=== PATIENT | female | born 1975 | race Caucasian/White ===

== ENCOUNTER 2018-02-23 11:39 | Emergency (ER) | payer OTHER ==
[2018-02-23] MEDS: NORCO, ANEXSIA 5/325MG TABLET (HYDROcodone/ACETAMINOPHEN) PO (12:00)
== END 2018-02-23 12:53 | disposition home or self-care (01) ==
LOC: M ED 11:39
DX: S40.021A Contusion of right upper arm, initial encounter (principal); W00.9XXA Unspecified fall due to ice and snow, initial encounter; Y92.009 Unspecified place in unspecified non-institutional (private) residence as the place of occurrence of the external cause; Z98.84 Bariatric surgery status
CPT/HCPCS: 73060

== ENCOUNTER → 2018-03-09 | Outpatient (CLI) | payer OTHER ==
[~2018-03-09] MED LIST: CALC500T49 PO; MULT1TAB10 PO; NORCOTAB PO; VITA20008 PO; VITA500T53 PO
[2018-03-09 09:42] LABS: BASO # 0.1 10^3/uL (0.0-0.2); BASO % 0.6 % (0.0-1.0); EOS # 0.1 10^3/uL (0.0-0.50); EOS % 1.3 % (0.0-3.0); HEMATOCRIT 40.5 % (36.0-47.0); HEMOGLOBIN 13.6 g/dl (12.0-15.5); LYMPH # 2.1 10^3/uL (1.5-4.5); LYMPH % 24.7 % (24.0-44.0); MEAN CORPUSCULAR HEMOGLOBIN 30.6 pg (27.0-33.0); MEAN CORPUSCULAR HGB CONC 33.6 g/dl (32.0-36.5); MEAN CORPUSCULAR VOLUME 91.2 fl (80.0-96.0); MONO # 0.7 10^3/uL (0.0-0.8); MONO % 8.6 % (0.0-5.0); NEUTROPHILS # 5.5 10^3/uL (1.8-7.7); NEUTROPHILS % 64.5 % (36.0-66.0); PLATELET COUNT, AUTOMATED 329 10^3/uL (150-450); RED BLOOD COUNT 4.44 10^6/uL (4.00-5.40); WHITE BLOOD COUNT 8.6 10^3/uL (4.0-10.0)
[2018-03-09 10:10] LABS: ALBUMIN 3.5 GM/DL (3.2-5.2); ALT/SGPT 20 U/L (12-78); BILIRUBIN,TOTAL 0.8 MG/DL (0.2-1.0); BLOOD UREA NITROGEN 15 MG/DL (7-18); CALCIUM LEVEL 8.6 MG/DL (8.5-10.1); CARBON DIOXIDE LEVEL 29 MEQ/L (21-32); CHLORIDE LEVEL 108 MEQ/L (98-107); CHOLESTEROL LEVEL 199 MG/DL (<200); CHOLESTEROL RISK RATIO 4.145 (<5); CREATININE FOR GFR 0.59 MG/DL (0.55-1.30); GLOMERULAR FILTRATION RATE > 60.0 (>58); GLUCOSE, FASTING 91 MG/DL (70-100); HDL CHOLESTEROL 48 MG/DL (>40); LDL CHOLESTEROL 127 MG/DL (<100); NON-HDL-C 151 MG/DL; POTASSIUM SERUM 3.9 MEQ/L (3.5-5.1); SODIUM LEVEL 143 MEQ/L (136-145); TOTAL PROTEIN 7.1 GM/DL (6.4-8.2); TRIGLYCERIDES LEVEL 120 MG/DL (<150)
[2018-03-09 10:47] LABS: TOTAL 25(OH) VITAMIN D 50.4 NG/ML (30.0-100.0)
[2018-03-09 11:16] LABS: HEMOGLOBIN A1c 5.5 %
== END ==
LOC: M LAB 09:15
PROVIDERS: ATTEND Nurse Practitioner Family
DX: E11.9 Type 2 diabetes mellitus without complications (principal); E78.5 Hyperlipidemia, unspecified; E55.9 Vitamin D deficiency, unspecified; I10 Essential (primary) hypertension

== ENCOUNTER → 2018-11-02 | Outpatient (CLI) | payer OTHER ==
[~2018-11-02] MED LIST changes: +HYDR-3715 PO; -NORCOTAB PO; +VITA500T17 PO; -VITA500T53 PO
[2018-11-02 12:56] LABS: BASO # 0.1 10^3/uL (0.0-0.2); BASO % 0.6 % (0.0-1.0); EOS % 0.5 % (0.0-3.0); HEMATOCRIT 44.9 % (36.0-47.0); HEMOGLOBIN 15.2 g/dl (12.0-15.5); LYMPH # 1.7 10^3/uL (1.5-4.5); LYMPH % 20.5 % (24.0-44.0); MEAN CORPUSCULAR HEMOGLOBIN 31.3 pg (27.0-33.0); MEAN CORPUSCULAR HGB CONC 33.9 g/dl (32.0-36.5); MEAN CORPUSCULAR VOLUME 92.4 fl (80.0-96.0); MONO # 0.6 10^3/uL (0.0-0.8); MONO % 7.2 % (0.0-5.0); NEUTROPHILS # 5.8 10^3/uL (1.8-7.7); PLATELET COUNT, AUTOMATED 259 10^3/uL (150-450); RED BLOOD COUNT 4.86 10^6/uL (4.00-5.40); WHITE BLOOD COUNT 8.2 10^3/uL (4.0-10.0)
[2018-11-02 14:15] LABS: ALBUMIN 3.3 GM/DL (3.2-5.2); ALT/SGPT 23 U/L (12-78); BILIRUBIN,TOTAL 0.5 MG/DL (0.2-1.0); BLOOD UREA NITROGEN 14 MG/DL (7-18); CALCIUM LEVEL 8.9 MG/DL (8.5-10.1); CARBON DIOXIDE LEVEL 26 MEQ/L (21-32); CHLORIDE LEVEL 107 MEQ/L (98-107); CREATININE FOR GFR 0.53 MG/DL (0.55-1.30); FREE T4 1.09 NG/DL (0.76-1.46); GLOMERULAR FILTRATION RATE > 60.0 (>58); GLUCOSE, FASTING 96 MG/DL (70-100); MAGNESIUM LEVEL 1.9 MG/DL (1.8-2.4); POTASSIUM SERUM 4.1 MEQ/L (3.5-5.1); SODIUM LEVEL 141 MEQ/L (136-145); TOTAL PROTEIN 6.6 GM/DL (6.4-8.2)
== END ==
LOC: M WUC 10:15
PROVIDERS: ATTEND Physician Assistant
DX: R42 Dizziness and giddiness (principal)

== ENCOUNTER → 2018-11-22 | Outpatient (CLI) | payer OTHER ==
[2018-11-22 13:52] LABS: FOLATE > 24.0 NG/ML (>5.4); VITAMIN B12 LEVEL 1681 PG/ML (247-911)
[2018-11-22 13:58] LABS: TOTAL 25(OH) VITAMIN D 43.4 NG/ML (30.0-100.0)
[2018-11-23 16:15] LABS: FERRITIN 67 NG/ML (8-252); IRON (FE) 91 UG/DL (50-170); PERCENT SATURATION 30.2 % (13.2-45.0); TOTAL IRON BINDING CAPACITY 301 UG/DL (250-450)
[2018-11-29 10:07] LABS: NICOTINIC ACID <5.0 ng/mL (0.0-5.0); VITAMIN A, RETINOL LEVEL 47.8 ug/dL (20.1-62.0); VITAMIN B1 LEVEL WHOLE BLOOD 169.6 nmol/L (66.5-200.0); VITAMIN B2 (RIBOFLAVIN) 229 ug/L (137-370); VITAMIN B6,PYRIDOXAL PHOSPHATE 40.7 ug/L (2.0-32.8); VITAMIN B7 (BIOTIN) 1.05 ng/mL (0.05-0.83); VITAMIN C, ASCORBIC ACID 1.6 mg/dL (0.2-2.0); VITAMIN E(ALPHA TOCOPHEROL) 14.8 mg/L (7.0-25.1); VITAMIN E(GAMMA TOCOPHEROL) 0.7 mg/L (0.5-5.5); VITAMIN K1 1.52 ng/mL (0.13-1.88)
== END ==
LOC: M LAB 11:54
PROVIDERS: ATTEND Obstetrics & Gynecology
DX: Z98.84 Bariatric surgery status (principal)

== ENCOUNTER → 2020-03-31 | Outpatient (CLI) | payer OTHER ==
--- NOTE | 2020-03-31 08:55 | REPMRS ---
Patient History The patient states she has not had a clinical breast exam in over a year. Patient is nulliparous. No known family history of cancer. 3D TOMOSYNTHESIS WAS PERFORMED. [facility] lifetime risk for breast cancer is 13.0%. Volpara breast density b. Digital Woman Screen Mammo: March 31, 2020 - Exam #: [id number] Bilateral CC and MLO view(s) were taken. Technologist: Miya Daniels, Technologist No prior studies available for comparison. FINDINGS: There are scattered fibroglandular densities. There is a mild amount of residual fibroglandular tissue which is fairly symmetric. There is no dominant mass, architectural distortion, or clustered microcalcification suggestive of malignancy. Assessment: BI-RADS/ACR category 1 mammogram. Negative Mammogram. Recommendation Routine screening mammogram in 1 year (for women over age 40). This mammogram was interpreted with the aid of an FDA-approved computer-aided dectection system. Electronically Signed By: Devin Taveras MD 03/31/20 0832
== END ==
LOC: M WHC 07:57
PROVIDERS: ATTEND Student in an Organized Health Care Education/Training Program
DX: Z12.31 Encounter for screening mammogram for malignant neoplasm of breast (principal)

== ENCOUNTER → 2020-05-13 | Outpatient (REF) | payer OTHER | LOC: M SFHCPLAZ 10:06 | PROVIDERS: ATTEND Student in an Organized Health Care Education/Training Program | DX: Z12.4 Encounter for screening for malignant neoplasm of cervix (principal) | CPT/HCPCS: 87624; G0123 ==

== ENCOUNTER → 2020-07-18 | Outpatient (REF) | payer OTHER ==
[2020-07-18 13:07] LABS: BLOOD UREA NITROGEN 14 MG/DL (7-18); CALCIUM LEVEL 9.1 MG/DL (8.5-10.1); CARBON DIOXIDE LEVEL 27 MEQ/L (21-32); CHLORIDE LEVEL 111 MEQ/L (98-107); FERRITIN 10 NG/ML (8-252); GLOMERULAR FILTRATION RATE > 60.0 (>58); GLUCOSE, FASTING 84 MG/DL (70-100); IRON (FE) 94 UG/DL (50-170); MAGNESIUM LEVEL 1.9 MG/DL (1.8-2.4); POTASSIUM SERUM 4.1 MEQ/L (3.5-5.1); SODIUM LEVEL 142 MEQ/L (136-145)
[2020-07-18 13:12] LABS: PTH INTACT 70.9 PG/ML (18.5-88.0); TOTAL 25(OH) VITAMIN D 46.8 NG/ML (30.0-100.0); VITAMIN B12 LEVEL 1125 PG/ML (247-911)
== END ==
LOC: M SFHCPLAZ 09:54
PROVIDERS: ATTEND Family Medicine
DX: Z98.84 Bariatric surgery status (principal)

== ENCOUNTER → 2020-08-14 | Outpatient (REF) | payer OTHER | LOC: M PLALAB 08:08 | PROVIDERS: ATTEND Student in an Organized Health Care Education/Training Program | DX: R74.8 Abnormal levels of other serum enzymes (principal) ==

== ENCOUNTER → 2022-12-22 | Outpatient (CLI) | payer OTHER | LOC: M WHC 07:27 | PROVIDERS: ATTEND Student in an Organized Health Care Education/Training Program | DX: Z12.31 Encounter for screening mammogram for malignant neoplasm of breast (principal) ==

== ENCOUNTER → 2022-12-22 | Outpatient (CLI) | payer OTHER ==
[2022-12-22 11:38] LABS: HEMOGLOBIN A1c 5.9 % (4.0-6.0)
[2022-12-22 11:43] LABS: BLOOD UREA NITROGEN 19 MG/DL (9-23); CALCIUM LEVEL 8.7 MG/DL (8.5-10.1); CARBON DIOXIDE LEVEL 28 MMOL/L (20-31); CHLORIDE LEVEL 109 MMOL/L (98-107); CHOLESTEROL LEVEL 221 MG/DL (<200); CHOLESTEROL RISK RATIO 4.01 (<5); CREATININE FOR GFR 0.64 MG/DL (0.55-1.30); GLOMERULAR FILTRATION RATE > 60.0 (>58); GLUCOSE, FASTING 90 MG/DL (60-100); LDL CHOLESTEROL 139.8 MG/DL (<100); PHOSPHORUS LEVEL 3.8 MG/DL (2.5-4.9); POTASSIUM SERUM 4.2 MMOL/L (3.5-5.1); SODIUM LEVEL 142 MMOL/L (136-145); TRIGLYCERIDES LEVEL 131 MG/DL (<150)
== END ==
LOC: M PLALAB 08:21
PROVIDERS: ATTEND Student in an Organized Health Care Education/Training Program
DX: Z13.1 Encounter for screening for diabetes mellitus (principal); Z13.220 Encounter for screening for lipoid disorders; Z98.84 Bariatric surgery status; Z13.21 Encounter for screening for nutritional disorder

== ENCOUNTER 2023-01-16 04:32 | Emergency (ER) | payer OTHER ==
[~2023-01-16] VITALS: Ht 165.1 cm; Wt 85.5 kg
[2023-01-16 05:29] LABS: BASO # 0.1 10^3/uL (0.0-0.2); BASO % 0.3 % (0.0-1.0); HEMATOCRIT 34.3 % (36.0-47.0); HEMOGLOBIN 10.6 g/dl (12.0-15.5); LYMPH # 1.3 10^3/uL (1.5-5.0); LYMPH % 9.2 % (24.0-44.0); MEAN CORPUSCULAR HEMOGLOBIN 23.1 pg (27.0-33.0); MEAN CORPUSCULAR HGB CONC 30.9 g/dl (32.0-36.5); MEAN CORPUSCULAR VOLUME 74.7 fl (80.0-96.0); MONO # 0.8 10^3/uL (0.0-0.8); MONO % 5.8 % (2.0-8.0); NEUTROPHILS # 12.2 10^3/uL (1.5-8.5); NEUTROPHILS % 84.4 % (36.0-66.0); PLATELET COUNT, AUTOMATED 374 10^3/uL (150-450); RED BLOOD COUNT 4.59 10^6/uL (4.00-5.40); WHITE BLOOD COUNT 14.4 10^3/uL (4.0-10.0)
[2023-01-16 05:54] LABS: ALBUMIN 3.6 G/DL (3.2-5.2); BILIRUBIN,DIRECT 0.3 MG/DL (<0.4); BILIRUBIN,TOTAL 0.7 MG/DL (0.3-1.2); TOTAL PROTEIN 7.6 G/DL (5.7-8.2)
[2023-01-16] MEDS ORDERED: MORPHINE 4 MG/ML 1ML VIAL IV ONE (06:35)
[2023-01-16] MEDS ORDERED: NS 1,000 ML IV ONE (06:35)
[2023-01-16] MEDS ORDERED: ONDANSETRON 4MG 2ML VIAL IV ONE (06:35)
[2023-01-16] MEDS ORDERED: MORPHINE 2 MG/ML 1ML VIAL IV ONE (07:10)
[2023-01-16 07:45] LABS: HCG, SERUM QUALITATIVE NEGATIVE (NEGATIVE)
[2023-01-16] MEDS ORDERED: PERC5TAB12 PO (09:35)
[2023-01-16] MEDS ORDERED: FLOM0.4C39 PO (09:35)
[2023-01-16] MEDS ORDERED: ONDA4TAB6 PO (09:35)
[2023-01-16] MEDS ORDERED: MIRA3350 PO (09:35)
[2023-01-16] MEDS ORDERED: cefTRIAXone SOD 1 GM in D5W MINI-BAG PLUS 50 ML IV ONE (09:40)
[2023-01-16] MEDS ORDERED: CEFD300C42 PO (09:42)
[2023-01-16 10:14] VITALS: BP 139/72; TEMP 99.4; O2SAT 99
== END 2023-01-16 10:23 | disposition home or self-care (01) ==
LOC: M ED 04:32
DX: N20.1 Calculus of ureter (principal); N13.30 Unspecified hydronephrosis; Z98.84 Bariatric surgery status; Z79.83 Long term (current) use of bisphosphonates; Z79.810 Long term (current) use of selective estrogen receptor modulators (SERMs); Z79.899 Other long term (current) drug therapy; Z88.5 Allergy status to narcotic agent
CPT/HCPCS: 74176; 80047; 80076; 81001; 83605; 83690; 84703; 85025; 87086; 93005; 96361; 96365; 96375; 96376; 99284; J0696; J2405

== ENCOUNTER → 2023-02-01 | Outpatient (REF) | payer OTHER ==
[~2023-02-01] MED LIST changes: +CEFD300C42 PO; +FLOM0.4C39 PO; +MIRA3350 PO; +ONDA4TAB6 PO; +PERC5TAB12 PO
== END ==
LOC: M SMT 13:08
PROVIDERS: ATTEND Nurse Practitioner Family
DX: N20.0 Calculus of kidney (principal)

== ENCOUNTER 2023-05-03 10:51 | Day surgery (SDC) | payer OTHER ==
[~2023-05-03] VITALS: Ht 165.1 cm; Wt 83.9 kg
[~2023-05-03 10:51] MED LIST changes: +CALC500C16 PO; +CEFD1CAP9 PO; -CEFD300C42 PO; +MIDAZOLAM INJ 2MG/2ML VIAL As Ordered ONE; +THERTAB52 PO; +VITA200031 PO; +fentaNYL 100 MCG/2 ML INJECTION As Ordered ONE
[2023-05-03] MEDS: CYCLOPENTOLATE 1% OPHTH SOLN 2ML BTL OS SCH (11:31)
[2023-05-03] MEDS: PROPARACAINE 0.5% OPHTH SOL 15ML OS ONE (11:31)
[2023-05-03] MEDS: OFLOXACIN 0.3 % (OCUFLOX) OPTH SOL 5ML OS SCH (11:32)
[2023-05-03] MEDS: PHENYLEPHRINE 2.5% OPHTH SOL 2ML OS SCH (11:32)
[2023-05-03] MEDS: TROPICAMIDE 1% OPHTH SOLN 15ML OS SCH (11:32)
[2023-05-03] MEDS: BSS IRR 500ML/OMIDRIA 4ML IRR BAG (OR ONLY) As Ordered ONE (12:07)
[2023-05-03] MEDS: LIDOCAINE 1% SDV 5ML VIAL As Ordered ONE (12:07)
[2023-05-03] MEDS: CEFUROXIME 1MG/0.1ML INTRACAMERAL INJ As Ordered ONE (12:12)
[2023-05-03 12:20] VITALS: BP 128/71; TEMP 96.8; O2SAT 97
== END 2023-05-03 12:48 | disposition home or self-care (01) ==
LOC: M SDC 10:51
PROVIDERS: ATTEND Ophthalmology
DX: H25.12 Age-related nuclear cataract, left eye (principal); K21.9 Gastro-esophageal reflux disease without esophagitis; Z88.5 Allergy status to narcotic agent; Z79.899 Other long term (current) drug therapy; Z98.84 Bariatric surgery status
CPT/HCPCS: 66984; 81025; J0697; J1097; J2250; J3010; V2632

== ENCOUNTER → 2023-07-15 | Outpatient (CLI) | payer OTHER ==
[~2023-07-15] MED LIST changes: -MIDAZOLAM INJ 2MG/2ML VIAL As Ordered ONE; -fentaNYL 100 MCG/2 ML INJECTION As Ordered ONE
== END ==
LOC: M RAD 08:40
PROVIDERS: ATTEND Nurse Practitioner Family
DX: N20.0 Calculus of kidney (principal); N28.89 Other specified disorders of kidney and ureter

== ENCOUNTER 2023-10-18 12:28 | Emergency (ER) | payer OTHER ==
[~2023-10-18] VITALS: Ht 165.1 cm; Wt 88.5 kg
[~2023-10-18 12:28] MED LIST changes: +ONDA-282 PO; -ONDA4TAB6 PO
[2023-10-18 14:40] LABS: BASO # 0.1 10^3/uL (0.0-0.2); BASO % 0.5 % (0.0-1.0); EOS % 0.1 % (0.0-3.0); HEMATOCRIT 32.5 % (36.0-47.0); HEMOGLOBIN 9.4 g/dl (12.0-15.5); LYMPH # 0.8 10^3/uL (1.5-5.0); LYMPH % 6.3 % (24.0-44.0); MEAN CORPUSCULAR HEMOGLOBIN 20.3 pg (27.0-33.0); MEAN CORPUSCULAR HGB CONC 28.9 g/dl (32.0-36.5); MEAN CORPUSCULAR VOLUME 70.3 fl (80.0-96.0); MONO # 0.3 10^3/uL (0.0-0.8); MONO % 2.6 % (2.0-8.0); NEUTROPHILS # 11.7 10^3/uL (1.5-8.5); NEUTROPHILS % 90.1 % (36.0-66.0); PLATELET COUNT, AUTOMATED 467 10^3/uL (150-450); RED BLOOD COUNT 4.62 10^6/uL (4.00-5.40)
[2023-10-18 15:09] LABS: BLOOD UREA NITROGEN 20 MG/DL (9-23); CARBON DIOXIDE LEVEL 22 MMOL/L (20-31); CHLORIDE LEVEL 109 MMOL/L (98-107); CREATININE FOR GFR 0.73 MG/DL (0.55-1.30); GLOMERULAR FILTRATION RATE > 60.0 (>58); GLUCOSE, FASTING 154 MG/DL (60-100); POTASSIUM SERUM 4.4 MMOL/L (3.5-5.1); SODIUM LEVEL 139 MMOL/L (136-145)
[2023-10-18] MEDS: KETOROLAC 30 MG/ML 1ML VIAL IV ONE (16:59)
[2023-10-18] MEDS: ONDANSETRON 4MG 2ML VIAL IV ONE (16:59)
[2023-10-18] MEDS ORDERED: ONDA-282 PO (17:23)
[2023-10-18] MEDS ORDERED: MACR100C43 PO (17:23)
[2023-10-18 17:25] VITALS: BP 126/61; TEMP 98.7; O2SAT 99
== END 2023-10-18 17:34 | disposition home or self-care (01) ==
LOC: M ED 12:28
DX: N39.0 Urinary tract infection, site not specified (principal); N83.201 Unspecified ovarian cyst, right side; N20.0 Calculus of kidney; Z98.84 Bariatric surgery status; Z79.899 Other long term (current) drug therapy; Z88.5 Allergy status to narcotic agent
CPT/HCPCS: 74176; 80048; 81001; 85025; 87086; 96374; 96375; 99284; J1885; J2405

== ENCOUNTER → 2024-01-02 | Outpatient (CLI) | payer OTHER ==
[~2024-01-02] MED LIST changes: +MACR100C43 PO
== END ==
LOC: M WHC 07:27
PROVIDERS: ATTEND Student in an Organized Health Care Education/Training Program
DX: Z12.31 Encounter for screening mammogram for malignant neoplasm of breast (principal); R92.313 Mammographic fatty tissue density, bilateral breasts

== ENCOUNTER → 2024-01-20 | Outpatient (CLI) | payer OTHER | LOC: M PLAIMG 14:34 | PROVIDERS: ATTEND Nurse Practitioner Family | DX: N20.0 Calculus of kidney (principal) ==

== ENCOUNTER → 2024-02-02 | Outpatient (REF) | payer OTHER ==
[2024-02-02 14:18] LABS: APPEARANCE, URINE HAZY (CLEAR); BACTERIA, URINE AUTO NEGATIVE (NEGATIVE); BILIRUBIN, URINE AUTO NEGATIVE (NEGATIVE); BLOOD, URINE BLOOD NEGATIVE (NEGATIVE); COLOR, URINE YELLOW (YELLOW); GLUCOSE, URINE (UA) AUTO NEGATIVE (NEGATIVE); KETONE, URINE AUTO NEGATIVE (NEGATIVE); LEUKOCYTE ESTERASE, URINE AUTO TRACE (NEGATIVE); MUCUS, URINE SMALL (NEGATIVE); NITRITE, URINE AUTO NEGATIVE (NEGATIVE); PROTEIN, URINE AUTO NEGATIVE (NEGATIVE); RBC, URINE AUTO 0 /HPF (0-3); SPECIFIC GRAVITY URINE AUTO 1.023 (1.002-1.035); SQUAMOUS EPITHELIAL CELL UR AU 2 /HPF (0-6); UROBILINOGEN, URINE AUTO 0.2 mg/dL (0.0-2.0); WBC, URINE AUTO 2 /HPF (0-3)
== END ==
LOC: M SMT 13:15
PROVIDERS: ATTEND Nurse Practitioner Family
DX: N20.0 Calculus of kidney (principal)

== ENCOUNTER → 2024-02-13 | Outpatient (CLI) | payer OTHER | LOC: M PLAIMG 08:44 | PROVIDERS: ATTEND Nurse Practitioner Family | DX: N20.0 Calculus of kidney (principal); R91.1 Solitary pulmonary nodule; J84.10 Pulmonary fibrosis, unspecified; K44.9 Diaphragmatic hernia without obstruction or gangrene; Z98.84 Bariatric surgery status ==

== ENCOUNTER 2024-05-04 08:43 | Day surgery (SDC) | payer OTHER ==
[~2024-05-04] VITALS: Ht 165.1 cm; Wt 84.8 kg
[2024-05-04] MEDS ORDERED: propofoL 200 MG/20 ML VIAL As Ordered ONE (09:48)
[2024-05-04] MEDS ORDERED: LIDOCAINE 2% 100MG/5ML SDV (FOR ANES.) As Ordered ONE (09:48)
[2024-05-04] MEDS ORDERED: PHENYLephrine 500MCG 5ML (100MCG/ML) SYRINGE As Ordered ONE (10:50)
[2024-05-04 11:35] VITALS: BP 115/56; O2SAT 97
== END 2024-05-04 11:44 | disposition home or self-care (01) ==
LOC: M OPP 08:43
PROVIDERS: ATTEND Surgery
DX: Z12.11 Encounter for screening for malignant neoplasm of colon (principal); D12.6 Benign neoplasm of colon, unspecified; Z88.5 Allergy status to narcotic agent; Z79.899 Other long term (current) drug therapy; Z98.84 Bariatric surgery status
CPT/HCPCS: 45385; 88305; J2371

== ENCOUNTER → 2024-05-31 | Outpatient (CLI) | payer OTHER | LOC: M WHC 10:43 | PROVIDERS: ATTEND Advanced Practice Midwife | DX: N83.201 Unspecified ovarian cyst, right side (principal) ==

== ENCOUNTER → 2024-10-08 | Outpatient (REF) | payer OTHER ==
[~2024-10-08] MED LIST changes: -FLOM0.4C39 PO; +TAMS-18 PO
[2024-10-08 13:45] LABS: AMORPHOUS SEDIMENT SMALL (NEGATIVE); APPEARANCE, URINE CLEAR (CLEAR); BACTERIA, URINE AUTO NEGATIVE (NEGATIVE); BILIRUBIN, URINE AUTO NEGATIVE (NEGATIVE); BLOOD, URINE BLOOD NEGATIVE (NEGATIVE); GLUCOSE, URINE (UA) AUTO NEGATIVE (NEGATIVE); KETONE, URINE AUTO NEGATIVE (NEGATIVE); LEUKOCYTE ESTERASE, URINE AUTO NEGATIVE (NEGATIVE); MUCUS, URINE SMALL (NEGATIVE); NITRITE, URINE AUTO NEGATIVE (NEGATIVE); PROTEIN, URINE AUTO NEGATIVE (NEGATIVE); RBC, URINE AUTO 1 /HPF (0-3); SPECIFIC GRAVITY URINE AUTO 1.031 (1.002-1.035); SQUAMOUS EPITHELIAL CELL UR AU 0 /HPF (0-6); UROBILINOGEN, URINE AUTO 0.2 mg/dL (0.0-2.0); WBC, URINE AUTO 1 /HPF (0-3)
== END ==
LOC: M SMT 12:47
PROVIDERS: ATTEND Nurse Practitioner Family
DX: R10.9 Unspecified abdominal pain (principal)

== ENCOUNTER 2024-12-20 07:23 | Day surgery (SDC) | payer OTHER ==
[~2024-12-20] VITALS: Ht 165.1 cm; Wt 81.6 kg
[~2024-12-20 07:23] MED LIST changes: +LIDOCAINE 2% 100 MG/5 ML SDV (FOR ANES.) As Ordered ONE; -VITA500T17 PO; +VITA500T8 PO
[2024-12-20 08:51] VITALS: TEMP 97.7
[2024-12-20 09:06] VITALS: BP 102/60; O2SAT 99
== END 2024-12-20 09:21 | disposition home or self-care (01) ==
LOC: M OPP 07:23
PROVIDERS: ATTEND Surgery
DX: D12.6 Benign neoplasm of colon, unspecified (principal); Z86.0100 Personal history of colon polyps, unspecified; Z88.5 Allergy status to narcotic agent; Z79.899 Other long term (current) drug therapy; Z98.84 Bariatric surgery status

== ENCOUNTER → 2025-01-03 | Outpatient (CLI) | payer OTHER ==
[~2025-01-03] MED LIST changes: -LIDOCAINE 2% 100 MG/5 ML SDV (FOR ANES.) As Ordered ONE
== END ==
LOC: M WHC 07:25
PROVIDERS: ATTEND Student in an Organized Health Care Education/Training Program
DX: Z12.31 Encounter for screening mammogram for malignant neoplasm of breast (principal)